=== PATIENT | male | born 1980 | race Caucasian/White ===

== ENCOUNTER 2021-11-08 20:46 | Emergency (ER) | payer OTHER ==
[2021-11-08] MEDS ORDERED: ONDANSETRON 4 MG/2 ML VIAL ONE (21:07)
[2021-11-08] MEDS ORDERED: FAMOTIDINE 20 MG/2 ML VIAL IV ONE (21:08)
--- NOTE | 2021-11-08 21:56 | RAD REPORT ---
EXAM DESCRIPTION: RAD - Chest Single View - 11/08/2021 9:48 pm CLINICAL HISTORY: CHEST PAIN Chest pain. COMPARISON: No comparisons FINDINGS: Portable technique limits examination quality. The lungs are grossly clear. The heart is normal in size. No displaced fractures. IMPRESSION: No acute intrathoracic process suspected.
[2021-11-08 23:57] LABS: Absolute Lymphocytes (CBC) 0.7 K/uL (0.7-4.9); Hematocrit 43.2 % (39.6-49.0); Lymphocytes % 5.4 % (15.3-44.8); MPV 9.6 fL (7.6-11.3); RBC Red Blood Cell Count 4.87 M/uL (4.33-5.43)
[2021-11-08 23:58] LABS: Protime INR 1.16
[2021-11-09 00:40] LABS: Albumin 4.1 g/dL (3.4-5.0); Bilirubin Direct 0.1 mg/dL (0-0.2); Bilirubin Total 0.4 mg/dL (0.2-1.0); Magnesium 2.2 mg/dL (1.8-2.4); Potassium 4.3 mmol/L (3.5-5.1); Protein, Total 7.8 g/dL (6.4-8.2); Troponin High Sensitivity 9.3 pg/mL (<58.9)
--- NOTE | 2021-11-09 00:50 | ER ---
Nurse's Notes [facility] Name: Jez Blakely Age: 41 yrs Sex: Male : 1980 Arrival Date: 11/08/2021 Time: 20:51 Bed 23 Private MD: Diagnosis: Acute pancreatitis without necrosis or infection, unspecified;Rhabdomyolysis Presentation: 11/08 21:23 Chief complaint: Patient states: toned out to [facility] unit for epigastric pain, N/V X 2 ld1 hours. Coronavirus screen: Client presents with at least one sign or symptom that may indicate coronavirus-19. At this time, the client does not indicate any symptoms associated with coronavirus-19. Ebola Screen: No symptoms or risks identified at this time. Initial Sepsis Screen: Does the patient meet any 2 criteria? No. Patient's initial sepsis screen is negative. Does the patient have a suspected source of infection? No. Patient's initial sepsis screen is negative. Risk Assessment: Do you want to hurt yourself or someone else? Patient reports no desire to harm self or others. Onset of symptoms was November 08, 2021 at 21:24. 21:23 Method Of Arrival: Law Enforcement: [place] [employer] ld1 21:23 Acuity: JOSEY 3 ld1 Triage Assessment: 21:25 General: Appears in no apparent distress. comfortable, Behavior is calm, cooperative, ld1 appropriate for age. Pain: Complains of pain in epigastric area Pain does not radiate. Pain currently is 7 out of 10 on a pain scale. Quality of pain is described as throbbing, Pain began suddenly. EENT: No signs and/or symptoms were reported regarding the EENT system. Neuro: Level of Consciousness is awake, alert, obeys commands, Oriented to person, place, time, situation. Cardiovascular: Capillary refill < 3 seconds Patient's skin is warm and dry. Rhythm is regular. Respiratory: Airway is patent Respiratory effort is even, unlabored. GI: Abdomen is flat, non-distended, Reports upper abdominal pain. : No signs and/or symptoms were reported regarding the genitourinary system. Derm: No signs and/or symptoms reported regarding the dermatologic system. Musculoskeletal: No signs and/or symptoms reported regarding the musculoskeletal system. Historical: - Allergies: 21:25 No Known Allergies; ld1 - Home Meds: 21:25 Prilosec Oral [Active]; ld1 - PMHx: 21:25 GERD; ld1 - PSHx: 21:25 None; ld1 - Immunization history:: Adult Immunizations up to date, Client reports receiving the 2nd dose of the Covid vaccine. - Social history:: Smoking status: Patient denies any tobacco usage or history of. Patient/guardian denies using alcohol. Screenin: Abuse screen: Denies threats or abuse. Denies injuries from another. Nutritional ld1 screening: No deficits noted. Tuberculosis screening: No symptoms or risk factors identified. Fall Risk None identified. Assessment: :26 Reassessment: See triage assessment. ld1 22:57 Reassessment: Patient appears in no apparent distress at this time. Patient and/or ld1 family updated on plan of care and expected duration. Pain level reassessed. 11/09 00:00 Reassessment: Patient and/or family updated on plan of care and expected duration. Pain vc1 level reassessed. Patient is alert, oriented x 3, equal unlabored respirations, skin warm/dry/pink. 01:00 Reassessment: No changes from previously documented assessment. vc1 02:00 Reassessment: Patient and/or family updated on plan of care and expected duration. Pain vc1 level reassessed. Patient is alert, oriented x 3, equal unlabored respirations, skin warm/dry/pink. Patient states symptoms have improved. 03:00 Reassessment: Patient and/or family updated on plan of care and expected duration. Pain vc1 level reassessed. Patient is alert, oriented x 3, equal unlabored respirations, skin warm/dry/pink. Patient states feeling better. Patient states symptoms have improved. 05:30 Reassessment: Patient and/or family updated on plan of care and expected duration. Pain vc1 level reassessed. Patient is alert, oriented x 3, equal unlabored respirations, skin warm/dry/pink. Patient states feeling better. Patient states symptoms have improved. GI: Reports nausea. Vital Signs: 11/08 21:23 BP 125 / 94; Pulse 63; Resp 18; Temp 98.7(TE); Pulse Ox 99% on R/A; Weight 76.2 kg; ld1 Height 5 ft. 6 in. (167.64 cm); Pain 7/10; 22:57 BP 120 / 82; Pulse 69; Resp 18; Pulse Ox 99% on R/A; vc1 11/09 00:10 BP 123 / 84; Pulse 68; Resp 18; Pulse Ox 98% on R/A; ld1 01:00 BP 128 / 86; Pulse 60; Resp 18; Pulse Ox 98% ; vc1 02:00 BP 133 / 97; Pulse 61; Resp 18; Pulse Ox 99% ; vc1 03:00 BP 106 / 73; Pulse 59; Resp 18; Pulse Ox 98% ; vc1 04:00 BP 120 / 93; Pulse 54; Resp 18; Pulse Ox 100% ; vc1 05:00 BP 98 / 77; Pulse 53; Resp 16; Pulse Ox 98% on R/A; vc1 05:30 BP 120 / 79; Pulse 50; Resp 17; Pulse Ox 99% ; vc1 11/08 21:23 Body Mass Index 27.11 (76.20 kg, 167.64 cm) ld1 ED Course: 11/08 20:51 Patient arrived in ED. ds1 20:52 Rambo Gil PA is PHCP. cp 20:52 Nitesh Garza MD is Attending Physician. cp 21:05 Lilia Perez RN is Primary Nurse. ld1 21:24 Triage completed. ld1 21:25 Arm band placed on right wrist. ld1 21:26 Patient has correct armband on for positive identification. Placed in gown. Bed in low ld1 position. Call light in reach. Side rails up X2. trim technician on. Pulse ox on. NIBP on. Door closed. Noise minimized. Warm blanket given. 21:26 No provider procedures requiring assistance completed. Inserted saline lock: 20 gauge ld1 in left antecubital area, using aseptic technique. Maintain EMS IV. Dressing intact. Good blood return noted. Site clean \\T\\ dry. Gauge \\T\\ site: 20 G RH. 21:50 XRAY Chest (1 view) In Process Unspecified. EDMS 11/09 00:59 initiated a transfer with Laura from [facility]. She stated "we need mw2 the covid results before we can move on with the transfer.". 01:10 COVID-19/FLU A+B (Document "Date of Onset" if Symptomatic) Sent. mw2 02:01 contacted [facility] spoke to Maria Antonia to inform her of the Covid result. mw2 She will continue working on the transfer. 02:14 CT Abd/Pelvis - IV Contrast Only In Process Unspecified. EDMS 02:[address] Garza with the Doctor from [facility]. mw2 02:55 administrative approval given by Maria Antonia Polanco/ patient has been accepted to [facility] mw2 [place] 746 bed 3/ Dr. Diamond accepted the patient in transfer. 05:46 IV discontinued, intact, bleeding controlled, No redness/swelling at site. Pressure vc1 dressing applied, 2 IVs D/C'd for patient to be transferred to [facility]. Administered Medications: 11/08 21:22 Drug: Zofran (Ondansetron) 4 mg Route: IVP; Site: right hand; ld1 21:41 Follow up: Response: No adverse reaction ld1 21:22 Drug: Pepcid (famotidine) 20 mg Route: IVP; Site: right hand; ld1 21:42 Follow up: Response: No adverse reaction ld1 11/09 01:29 Drug: morphine 4 mg Route: IVP; Site: right antecubital; vc1 05:42 Follow up: Response: No adverse reaction; Marked relief of symptoms vc1 01:30 Drug: NS 0.9% 1000 ml Route: IV; Rate: 1 bolus; Site: right antecubital; vc1 02:30 Follow up: IV Status: Completed infusion; IV Intake: 1000ml vc1 01:30 Drug: NS 0.9% 1000 ml Route: IV; Rate: 1 bolus; Site: right antecubital; vc1 02:30 Follow up: IV Status: Completed infusion; IV Intake: 1000ml vc1 01:30 Drug: Zofran (Ondansetron) 4 mg Route: IVP; Site: right antecubital; vc1 05:42 Follow up: Response: No adverse reaction; Marked relief of symptoms vc1 Intake: 02:30 IV: 1000ml; Total: 1000ml. vc1 02:30 IV: 1000ml; Total: 2000ml. vc1 Outcome: 00:49 ER care complete, transfer ordered by cp 05:46 Transferred by private ambulance to [facility]. vc1 05:46 Condition: stable 05:46 Instructed on the need for transfer. 05:48 Patient left the ED. vc1 Signatures: Dispatcher [employer] EDOH Ary De La Fuente ds1 Rambo Gil PA PA cp [place], MyKena mw2 Lilia Perez, RN RN ld1 Vanessa Andrews RN RN vc1 Corrections: (The following items were deleted from the chart) 11/08 21:25 21:25 Home Meds: None; ld1 ld1 21:25 21:25 PMHx: None; ld1 ld1 11/09 02:16 02:01 contacted [facility] spoke to Cecilia to inform her of the Covid mw2 result. She will continue working on the transfer mw2 03:20 11/08 22:57 BP 108 / 2; Pulse 69bpm; Resp 18bpm; Pulse Ox 99% RA; ld1 vc1 11/09 03:20 02:57 BP 133 / 97; Pulse 70bpm; Resp 18bpm; Pulse Ox 97% RA; mw2 vc1
--- NOTE | 2021-11-09 00:50 | EDPHYS ---
Physician Documentation [facility] Name: Jez Blakely Age: 41 yrs Sex: Male : 1980 Arrival Date: 11/08/2021 Time: 20:51 Bed 23 Private MD: ED Physician Nitesh Garza HPI: 11/08 21:05 This 41 yrs old Male presents to ER via [employer] with complaints of Epigastric cp Pain. 21:05 The patient or guardian reports chest pain that is located primarily in the substernal cp area, epigastric area. Onset: 2 hour(s) ago. The pain does not radiate. Associated signs and symptoms: Pertinent positives: abdominal pain, nausea, vomiting, Pertinent negatives: cough, diaphoresis, shortness of breath. Historical: - Allergies: 21:25 No Known Allergies; ld1 - Home Meds: 21:25 Prilosec Oral [Active]; ld1 - PMHx: 21:25 GERD; ld1 - PSHx: 21:25 None; ld1 - Immunization history:: Adult Immunizations up to date, Client reports receiving the 2nd dose of the Covid vaccine. - Social history:: Smoking status: Patient denies any tobacco usage or history of. Patient/guardian denies using alcohol. ROS: 21:05 Constitutional: Negative for body aches, chills, fever, poor PO intake. cp 21:05 Eyes: Negative for injury, pain, redness, and discharge. cp 21:05 ENT: Negative for ear pain, sore throat, difficulty swallowing, difficulty handling secretions. 21:05 Cardiovascular: Positive for chest pain, Negative for edema, palpitations. 21:05 Respiratory: Negative for cough, shortness of breath, wheezing. 21:05 Abdomen/GI: Positive for abdominal pain, nausea, vomiting, of the epigastric area, Negative for diarrhea, constipation. 21:05 : Negative for urinary symptoms. 21:05 Neuro: Negative for altered mental status, dizziness, headache, syncope, weakness. 21:05 All other systems are negative. Exam: 21:05 ECG was reviewed by the Attending Physician. cp 21:10 Constitutional: The patient appears in no acute distress, alert, awake, cp non-diaphoretic, non-toxic, well developed, well nourished, uncomfortable. 21:10 Head/Face: Normocephalic, atraumatic. cp 21:10 Eyes: Periorbital structures: appear normal, Conjunctiva: normal, no exudate, no injection, Sclera: no appreciated abnormality, Lids and lashes: appear normal, bilaterally. 21:10 ENT: External ear(s): are unremarkable, Nose: is normal, Mouth: Lips: moist, Oral mucosa: pink and intact, moist, Posterior pharynx: Airway: no evidence of obstruction, patent. 21:10 Chest/axilla: Inspection: normal, Palpation: is normal, no crepitus, no tenderness. 21:10 Cardiovascular: Rate: normal, Rhythm: regular, Edema: is not appreciated, JVD: is not appreciated. 21:10 Respiratory: the patient does not display signs of respiratory distress, Respirations: normal, no use of accessory muscles, no retractions, labored breathing, is not present, Breath sounds: are clear throughout, no decreased breath sounds, no stridor, no wheezing. 21:10 Abdomen/GI: Inspection: abdomen appears normal, Bowel sounds: active, all quadrants, Palpation: soft, in all quadrants, severe abdominal tenderness, in the epigastric area, rebound tenderness, is not appreciated, voluntary guarding, is elicited in the epigastric area. 21:10 Back: CVA tenderness, is absent. 21:10 Neuro: Orientation: to person, place \\T\\ time. Mentation: is normal, Motor: moves all fours, strength is normal, Sensation: is normal. Vital Signs: 21:23 BP 125 / 94; Pulse 63; Resp 18; Temp 98.7(TE); Pulse Ox 99% on R/A; Weight 76.2 kg; ld1 Height 5 ft. 6 in. (167.64 cm); Pain 7/10; 22:57 BP 120 / 82; Pulse 69; Resp 18; Pulse Ox 99% on R/A; vc1 19 00:10 BP 123 / 84; Pulse 68; Resp 18; Pulse Ox 98% on R/A; ld1 01:00 BP 128 / 86; Pulse 60; Resp 18; Pulse Ox 98% ; vc1 02:00 BP 133 / 97; Pulse 61; Resp 18; Pulse Ox 99% ; vc1 03:00 BP 106 / 73; Pulse 59; Resp 18; Pulse Ox 98% ; vc1 04:00 BP 120 / 93; Pulse 54; Resp 18; Pulse Ox 100% ; vc1 05:00 BP 98 / 77; Pulse 53; Resp 16; Pulse Ox 98% on R/A; vc1 05:30 BP 120 / 79; Pulse 50; Resp 17; Pulse Ox 99% ; vc1 11/08 21:23 Body Mass Index 27.11 (76.20 kg, 167.64 cm) ld1 MDM: 11/08 21:09 Patient medically screened. 22:00 Differential diagnosis: abnormal EKG, acute myocardial infarction, cholecystitis, cp Cholelithiasis gastritis, gastroesophageal reflux disease (GERD), pancreatitis, pleurisy, pneumonia, pneumothorax. 11/09 00:48 Data reviewed: vital signs, nurses notes, lab test result(s), EKG, I have discussed the cp patient's presentation/case with the attending Emergency Department Physician; and as a result, I will transfer patient. 00:48 Test interpretation: by ED physician or midlevel provider: ECG, plain radiologic cp studies. 11/08 20:56 Order name: Basic Metabolic Panel; Complete Time: 00:42 cp 11/09 00:42 Interpretation: Normal except: CL 110; GLUC 107; GFR 76. cp 11/08 20:56 Order name: CBC with Diff; Complete Time: 02:18 cp 11/09 00:46 Interpretation: Normal except: WBC 13.7; SLAVA% 87.9; LYM% 5.4; NEUT A 12.1. 11/08 20:56 Order name: LFT's; Complete Time: 00:42 cp 11/09 00:42 Interpretation: Normal except: AST 78; GLOB 3.7. cp 11/08 20:56 Order name: Magnesium; Complete Time: 00:42 cp 11/08 20:56 Order name: PT-INR cp 11/08 20:56 Order name: Troponin HS; Complete Time: 00:42 cp 11/08 20:56 Order name: XRAY Chest (1 view); Complete Time: 22:46 cp 11/08 22:46 Interpretation: Report review. 11/09 00:21 Order name: Creatine Phosphokinase; Complete Time: 00:42 EDMS 11/09 00:42 Interpretation: Abnormal: CPK 5836. 11/09 00:21 Order name: Lipase; Complete Time: 00:42 EDMS 11/09 00:43 Interpretation: Abnormal: LIP 477. cp 11/09 00:25 Order name: Manual Differential; Complete Time: 02:18 EDMS 11/09 00:44 Order name: CT Abd/Pelvis - IV Contrast Only cp 11/09 00:51 Order name: COVID-19/FLU A+B (Document "Date of Onset" if Symptomatic); Complete Time: cp 02:11/08 20:56 Order name: EKG; Complete Time: 20:56 cp 11/08 20:56 Order name: Cardiac monitoring; Complete Time: 21:23 cp 11/08 20:56 Order name: EKG - Nurse/Tech; Complete Time: 21:22 cp 11/08 20:56 Order name: IV Saline Lock; Complete Time: 21:23 cp 11/08 20:56 Order name: Labs collected and sent; Complete Time: 21:41 cp 11/08 20:56 Order name: O2 Per Protocol; Complete Time: 21:22 cp 11/08 20:56 Order name: O2 Sat Monitoring; Complete Time: 21:22 cp EC/18 21:05 Rate is 62 beats/min. Rhythm is regular. CT interval is normal. QRS interval is normal. cp QT interval is normal. T waves are Inverted in lead aVR. Interpreted by me. Reviewed by me. Administered Medications: 21:22 Drug: Zofran (Ondansetron) 4 mg Route: IVP; Site: right hand; ld1 21:41 Follow up: Response: No adverse reaction ld1 21:22 Drug: Pepcid (famotidine) 20 mg Route: IVP; Site: right hand; ld1 21:42 Follow up: Response: No adverse reaction ld1 11/09 01:29 Drug: morphine 4 mg Route: IVP; Site: right antecubital; vc1 05:42 Follow up: Response: No adverse reaction; Marked relief of symptoms vc1 01:30 Drug: NS 0.9% 1000 ml Route: IV; Rate: 1 bolus; Site: right antecubital; vc1 02:30 Follow up: IV Status: Completed infusion; IV Intake: 1000ml vc1 01:30 Drug: NS 0.9% 1000 ml Route: IV; Rate: 1 bolus; Site: right antecubital; vc1 02:30 Follow up: IV Status: Completed infusion; IV Intake: 1000ml vc1 01:30 Drug: Zofran (Ondansetron) 4 mg Route: IVP; Site: right antecubital; vc1 05:42 Follow up: Response: No adverse reaction; Marked relief of symptoms vc1 Disposition: 02:52 Co-signature as Attending Physician, Nitesh Garza MD I agree with the assessment and kdr plan of care. Disposition Summary: 11/09/21 00:49 Transfer Ordered Transfer Location: [facility] cp Reason: Higher level of care cp Condition: Stable cp Problem: new cp Symptoms: have improved cp Accepting Physician: Dr. Olivarez(11/09/21 05:48) vc1 Diagnosis - Acute pancreatitis without necrosis or infection, unspecified cp - Rhabdomyolysis cp Forms: - Medication Reconciliation Form cp - SBAR form cp Signatures: Dispatcher [employer] EDMS Nitesh Garza MD MD kdr Rambo Gil PA PA cp Lilia Perez, RN RN ld1 Vanessa Andrews RN RN vc1 Corrections: (The following items were deleted from the chart) 11/08 21:25 21:25 Home Meds: None; ld1 ld1 21:25 21:25 PMHx: None; ld1 ld1 11/09 00:21 11/08 21:03 LIPASE+C.LAB.BRZ ordered. EDVA EDMS 11/09 00:21 11/08 21:12 CREATINE PHOSPHOKINASE+C.LAB.BRZ ordered. EDVA EDVA 11/09 00:46 00:45 Normal except: WBC 13.7. cp cp 02:52 00:49 Doctor cp kdr 05:48 02:52 Dr. Olivarez kdr vc1
[2021-11-09] MEDS ORDERED: NA CHLORIDE 0.9% 2,000 ML ONE (01:15)
[2021-11-09] MEDS ORDERED: MORPHINE 4 MG/ML SYR ONE (01:23)
[2021-11-09] MEDS ORDERED: ONDANSETRON 4 MG/2 ML VIAL ONE ×2 (01:24→05:35)
[2021-11-09 01:41] LABS: Blood Morphology Comment NOT SEEN (NOT SEEN); Platelet Estimate ADEQ
[2021-11-09 01:54] LABS: SARS-COV-2 RT PCR NEGATIVE (NEGATIVE)
--- NOTE | 2021-11-09 12:59 | RAD REPORT ---
EXAM DESCRIPTION: CT Abdomen and Pelvis With Intravenous Contrast CLINICAL HISTORY: The patient is 41 years old and is Male; Epigastric pain TECHNIQUE: Axial computed tomography images of the abdomen and pelvis with intravenous contrast. S agittal and coronal reformatted images were created and reviewed. This CT exam was performed using one or more of the following dose reduction techniques: automated exposure control, adjustment of t he mA and/or kV according to patient size, and/or use of iterative reconstruction technique. COMPARISON: No relevant prior studies available. FINDINGS: Lung bases: Unremarkable. No mass. No consolidation. ABDOMEN: Liver: Unremarkable. No mass. Gallbladder and bile ducts: Unremarkable. No calcified stones. No ductal dilation. Pancreas: Unremarkable. No mass. No ductal dilation. Spleen: Unremarkable. No splenomegaly. Adrenals: Unremarkable. No mass. Kidneys and ureters: Unremarkable. No solid mass. No hydronephrosis. Stomach and bowel: Unremarkable. No obstruction. No mucosal thickening. PELVIS: Appendix: The appendix is normal. Bladder: Unremarkable. No mass. Reproductive: Unremarkable as visualized. ABDOMEN and PELVIS: Intraperitoneal space: Unremarkable. No free air. No significant fluid collection. Bones/joints: No acute fracture. No dislocation. Soft tissues: Unremarkable. Vasculature: Unremarkable. No abdominal aortic aneurysm. Lymph nodes: Unremarkable. No enlarged lymph nodes. IMPRESSION: No acute findings in the abdomen or pelvis. Electronically signed by: Parvez Gutierrez MD 11/09/2021 2:55 AM CDT Due to temporary technical issues with the PACS/Fluency reporting system, reports are being signed by the in house radiologists without review as a courtesy to insure prompt reporting. The interpreting radiologist is fully responsible for the content of the report.
[2021-11-09 13:52] VITALS: TEMP 98.7
[2021-11-09 14:04] VITALS: BP 120/79; O2SAT 99
--- NOTE | 2021-11-10 08:11 | EKG ---
Test Date: 2021-11-08 Test Time: 20:57:58 Cad Cam Programmer: ROSETTA MEASUREMENT RESULTS: Intervals: Rate: 62 MS: 134 QRSD: 78 QT: 402 QTc: 408 [place]: P: 51 MS: 134 QRS: 12 T: 27 INTERPRETIVE STATEMENTS: Normal sinus rhythm Normal ECG No previous ECG available for comparison Electronically Signed On 11-10-21 08:07:17 CDT by Marin Chamberlain
== END 2021-11-09 05:48 | disposition short-term general hospital (02) ==
LOC: ER 20:46
DX: K85.90 Acute pancreatitis without necrosis or infection, unspecified (principal); M62.82 Rhabdomyolysis
CPT/HCPCS: 93005; 85025; 80048; 36415; 83735; 82550; 85610; 80076; 84484; 83690; 0240U; 74177; 71045; J2405 ×3; 99285; J3490; J7030